=== PATIENT | male | born 1990 | race Two or more races ===

== ENCOUNTER → 2024-12-29 | Outpatient (CLI) | payer MEDICAID, SELFPAY ==
--- NOTE | 2024-12-29 13:30 | XR_ITS ---
Examination: Arterial duplex lower extremity study. Date and time of exam: December 29, 2024 1336 hours INDICATIONS: Bilateral lower leg discoloration and pain beginning 8 years ago Findings: Duplex sonographic imaging of the lower extremity arteries using B-mode/Greco scale imaging and Doppler spectral analysis and color flow. Ankle brachial indices have been recorded. Right common femoral artery demonstrates triphasic flow. Right superficial femoral artery demonstrates triphasic flow. Right popliteal artery demonstrates triphasic flow. Right posterior tibial artery demonstrated triphasic flow. Right ankle/brachial index is 1.1. Left common femoral artery demonstrates triphasic flow. Left superficial femoral artery demonstrates triphasic flow. Left popliteal artery demonstrates triphasic flow. Left posterior tibial artery demonstrated triphasic flow. Left ankle/brachial index is 1.2. Impression: Negative study
== END | disposition home or self-care (01) ==
PROVIDERS: PCP Nurse Practitioner Family; Referring Provider Nurse Practitioner Family; Visit Provider Podiatrist
DX: R60.0 Localized edema (principal)
CPT/HCPCS: 93925